=== PATIENT | male | born 1965 | race Caucasian/White ===

== ENCOUNTER 2017-01-10 12:00 | Emergency (ER) | payer BC ==
[~2017-01-10] VITALS: Ht 182.9 cm; Wt 99.8 kg
--- NOTE | 2017-01-10 12:31 | [facility] Report ---
History of Present Issue Date/Time Seen by Provider 01/10/17 1227 Visit Reason Pt arrived:Walked Presenting Problem:c/o patient diagnosed with influenza but is not getting any better. patient c/o fever, chills, aching and wheezing at night. Location if Accident: Onset of symptoms date/time:/ or onset unknown for:MEDICAL HX UNKNOWN Have you (or family members/close friends) recently traveled outside the [place]? N If Yes, where/when: Have you had exposure to infectious disease within the past month? TB? Other? Specify: Patient state that he was diagnosed with influenza over a week ago but not feeling much better may have been re-exposed when his and child had it last week states that he is having fever, chills and aching and that his sinus is draining and making him wheeze at night ALLERGIES Coded Allergies: Penicillins (I-HIVES 11/11/16) Home Medications Reported Medications No Known Home Medications History Medical History Immunization HX DT/Tetanus Unknown Surgical Hx Previous Surgery?N Social History Smoking Hx Smoker: Never Smoker Tobacco: No Alcohol Alcohol: No Review of Systems All Other Systems Reviewed and Negative ENT nose discharge, nose congestion, throat pain, throat swelling. Respiratory cough Physical Exam Vital Signs Vital Signs Date Time Temp Pulse Resp B/P Pulse O2 O2 Flow FiO2 Ox Delivery Rate 01/10 1209 97.9 79 18 130/73 94 General Appearance normal appearance Ear, Nose, Throat sinus pain/drainage, nasal congestion, tonsillar swelling, Patient hoarse, throat red irritated, excessive wax noted in ears, greenish yellow discharge from nose Respiratory Status Yes: trachea midline, chest symmetrical, non tender chest. No: respiratory distress. Lung Sounds bilateral: normal breath sounds, lungs clear. Cardiovascular normal exam Peripheral Pulses Pulses normal Yes Neurologic alert, normal exam, no motor/sensory deficits Medical Decision Making LABS/Meds/Orders Pt receiving controlled substance in ED? No Results/Orders Laboratory Tests 01/10/17 1245: Influenza Type A Ag NOT DETECTED, Influenza Type B Ag NOT DETECTED, Group A Strep Screen NOT DETECTED Orders Procedure Date/time Status VAC STREP SCREEN 01/10 1245 Complete UTC FLU A,B 01/10 1245 Complete Departure Departure Time of Disposition 1244 Disposition DC Home or Self Care(routine) Clinical Impression Primary Impression: Sinusitis Qualifiers: Sinusitis location: maxillary Chronicity: unspecified Qualified Code: J32.0 - Chronic maxillary sinusitis Condition STABLE Referrals Noel BRENNAN,Fran (Family) Patient Instructions DI for Sinusitis Additional Instructions Saline drops in nose Follow up family doctor Over the counter Motrin/Tylenol for fever Follow up family doctor Return if needed Discharge Counseling Counseled pt/family regarding diagnosis, test results, medications/RX, home care Prescriptions Current Visit Scripts Azithromycin (Zithromycin (Z-MARINA) 250MG Tab) 250 MG PO DAILY #6 TAB TAKE TWO (2) TABLETS ON DAY 1, THEN ONE (1) TABLET DAY #2 THRU #5 Prednisone (Prednisone 20MG) 20 MG PO BID #10 TAB Fluticasone Propionate (Flonase 50 Mcg Nasal [place]) 2 SPRAY NA DAILY #1 BOT at 3500
[2017-01-10 12:46] LABS: UTC STREP SCREEN NOT DETECTED (NOTDETECTED)
[2017-01-10] MEDS ORDERED: PREDNISONE 20MG20 MG PO (12:48)
[2017-01-10] MEDS ORDERED: FLONASE 50 MCG16 GM (12:48)
[2017-01-10] MEDS ORDERED: ZITHROMAX Z PA250 MG PO (12:48)
[2017-01-10 12:51] VITALS: BP 130/73
== END 2017-01-10 12:56 | disposition home or self-care (01) ==
LOC: UTC 12:00
PROVIDERS: Nurse Practitioner
DX: J32.0 Chronic maxillary sinusitis (principal)